=== PATIENT | female | born 1970 | race Two or more races ===

== ENCOUNTER 2018-08-13 00:17 | Emergency (ER) | payer OTHER ==
[~2018-08-13] VITALS: Ht 157.5 cm; Wt 94.8 kg
[2018-08-13] MEDS ORDERED: TESSALON PERLE100 M1 PO (04:44)
[2018-08-13] MEDS ORDERED: ZITHROMAX TRI-500 MG PO (04:44)
[2018-08-13] MEDS ORDERED: MEDROLPACK PO (04:44)
== END 2018-08-13 04:52 | disposition home or self-care (01) ==
LOC: ER 00:17
DX: J11.1 Influenza due to unidentified influenza virus with other respiratory manifestations (principal); J35.01 Chronic tonsillitis